=== PATIENT | female | born 1955 | race African-American/Black ===

== ENCOUNTER 2018-01-09 22:38 | Inpatient (IN) | payer MEDICARE, OTHER ==
[~2018-01-09] VITALS: Ht 172.7 cm; Wt 154.2 kg
--- NOTE | 2018-01-09 22:52 | NUR ---
PATIENT BIB AMBULANCE FROM [facility] FOR PSYCH ADMISSION. PATIENT IS ON HOLD AND MEDICALLY CLEARED BY DR. SCHMITZ. CXR WAS TAKEN HERE IN ER AND PATIENT WAS TRANSFERED TO [facility] VIA GURNEY.
[2018-01-09] MEDS ORDERED: ALBU6.7H IH (22:54)
[2018-01-09] MEDS ORDERED: IPRA4AER IH (22:54)
[2018-01-09] MEDS ORDERED: SERT100T PO (22:54)
[2018-01-09] MEDS ORDERED: ATOR40TA PO (22:54)
[2018-01-09] MEDS ORDERED: ASPI81TA31 PO (22:54)
[2018-01-09] MEDS ORDERED: PANT40TA2 PO (22:54)
[2018-01-09] MEDS ORDERED: LOSA50TA21 PO (22:54)
[2018-01-09] MEDS ORDERED: AMLO10TA4 PO (22:54)
[2018-01-09] MEDS ORDERED: GABA-534 PO (22:54)
[2018-01-09] MEDS ORDERED: MONT10TA22 PO (22:54)
[2018-01-09] MEDS ORDERED: IBUP-1953 PO (22:54)
[2018-01-09] MEDS ORDERED: NITROFURANTOIN/NITROFURAN MAC 100 MG CAPSULE PO ONE (23:00)
[2018-01-09] MEDS ORDERED: NITROFURANTOIN/NITROFURAN MAC 100 MG CAPSULE ONE (23:02)
--- NOTE | 2018-01-09 23:06 | NUR ---
Pt. admitted to GPS, under care of Dr. Hoover Belongs List completed
[2018-01-10] MEDS ORDERED: MAG HYDROX/AL HYDROX/SIMETH 30 ML LIQUID UDC PO PRN
--- NOTE | 2018-01-10 07:05 | NUR ---
GPS/NSG Admitting Note: Patient is a 62 yr old homeless female admitted on a 5150 for Danger to self and Grave disability after she was transported to [facility] where she verbalized suicidal ideation by cutting wrists. On admission patient was treated for Urine tract infection, macrobid X1. Patient is morbid obese with a history of cocaine use, hx of Depression, Anxiety, bipolar D/O Neuropathy. Patient refused to sign admitting paperwork. Unable to contract for safety and verbalized to be actively suuicidal with a plan to cut wrists. Patients skin appeared to be intact however patient is unable to ambulate. Fall precautions in place. Will continue to Monitor for safety last observed lying in bed with eyes closed.
[2018-01-10 07:30] VITALS: BP 146/65
[2018-01-10] MEDS ORDERED: Z GUARD REMEDY PASTE 57 GM TUBE TOP PRN (10:45)
[2018-01-10] MEDS: SERTRALINE HCL 100 MG TABLET PO SCH (11:32)
[2018-01-10] MEDS ORDERED: CEPH-570 PO (12:46)
[2018-01-10] MEDS ORDERED: TRAM50TA2 PO (12:49)
[2018-01-10] MEDS ORDERED: HYDR-3326 PO (12:50)
[2018-01-10] MEDS: MAGNESIUM HYDROXIDE 30 ML LIQUID UDC PO PRN (13:00)
[2018-01-10 16:00] VITALS: BP 158/67
[2018-01-10] MEDS ORDERED: ALBUTEROL SULFATE 8 GM HFA.AER.AD IH PRN (17:00)
[2018-01-10] MEDS ORDERED: IPRATROPIUM BROMIDE 0.5 MG/2.5 ML NEBU NEB PRN (17:00)
[2018-01-10] MEDS ORDERED: ALBUTEROL SULFATE 2.5 MG/ 0.5 ML NEBU NEB PRN (17:00)
[2018-01-10] MEDS: TRAMADOL HCL 50 MG TABLET PO SCH (17:19)
[2018-01-10] MEDS: CEPHALEXIN MONOHYDRATE 500 MG CAPSULE PO SCH ×2 (17:19→20:12)
[2018-01-10] MEDS ORDERED: BISACODYL 10 MG SUPP.RECT RC PRN (18:15)
--- NOTE | 2018-01-10 18:23 | NUR ---
patient has been resting comfortably in bed for most of the day. no signs of distress. vital signs stable. medications reconciled by [employer]. Seen by psychiatrist. Patient has been sleeping for most of shift and has not verbalized thoughts of suicidal since beginning of shift. pictures taken of left and right posterior thighs. Complaining of constipation, prune juice and milk of mag administered which were not effective. Notified [employer] and received an order for dulcolax suppository. will continue to monitor. safety measures implemented. 1:1 sitter at bedside for safety.
[2018-01-10] MEDS: ATORVASTATIN 40 MG TABLET PO SCH (20:12)
[2018-01-10 20:56] VITALS: BP 132/48
[2018-01-10] MEDS: ACETAMINOPHEN 325 MG TABLET PO PRN (23:48)
[2018-01-11] MEDS: PANTOPRAZOLE SODIUM 40 MG TABLET.DR PO SCH (06:03)
--- NOTE | 2018-01-11 06:52 | NUR ---
GPS: Remain calm and comfortably. Slept 8 hrs through the night. tylenol 650 mg po given x1 for pain and effective.patient has been resting comfortably in bed for most of the night. no signs of distress. vital signs stable. will continue to monitor. safety measures implemented. 1:1 sitter at bedside for safety.
[2018-01-11 08:00] VITALS: BP 148/63
[2018-01-11] MEDS: MONTELUKAST SODIUM 10 MG TABLET PO SCH (08:34)
[2018-01-11] MEDS: CEPHALEXIN MONOHYDRATE 500 MG CAPSULE PO SCH ×4 (08:34→21:33)
[2018-01-11] MEDS: ASPIRIN 81 MG TAB.CHEW PO SCH (08:34)
[2018-01-11] MEDS: SERTRALINE HCL 100 MG TABLET PO SCH (08:34)
[2018-01-11] MEDS: TRAMADOL HCL 50 MG TABLET PO SCH (08:35)
[2018-01-11] MEDS: AMLODIPINE 10 MG TABLET PO SCH (09:44)
[2018-01-11] MEDS: LOSARTAN POTASSIUM 50 MG TABLET PO SCH (09:44)
[2018-01-11] MEDS ORDERED: OXYB5TAB11 PO (09:57)
[2018-01-11] MEDS ORDERED: Z GUARD REMEDY PASTE 57 GM TUBE TOP PRN (12:00)
[2018-01-11] MEDS: OXYBUTYNIN CHLORIDE 5 MG TABLET PO SCH (12:11)
[2018-01-11] MEDS: HYDROCODONE/APAP 5-325MG TABLET PO SCH ×3 (12:17→23:43)
--- NOTE | 2018-01-11 12:54 | NUR ---
Initial Discharge Note: Prior to hospitalization, patient was recently discharged from [facility] to live with her cousin. Patient was living with her cousin who was also patient's caregiver. However, patient is unable to return back with her cousin as her cousin can no longer care for patient due to patient being totally dependent for all ADLs and patient size. Patient will need SNF placement. community service worker will collaborate with patient and MD on a safe and proper discharge.
--- NOTE | 2018-01-11 12:58 | NUR ---
patient high risk for DVT, nonambulatory, obesity. patient with Differential Diagnosis from transferring hospital Unstable Angina, Angina, Anxiety, Pulmonary Embolism. patient complains of left leg pain more versus right leg pain. no imaging noted on transferring records for Doppler. Dr Ezequiel Alcocer notified, orders received for Doppler of Bilateral Lower Extremities, Lovenox 40mg daily for prophylaxis. reviewed labs from transferring [facility], BUN 25, Creatinine 0.90 and eGFR 70. per MD madrigal to administer Lovenox. orders read back. Discussed anticoagulation therapy to patient, risk and concerns of DVT, verbalized understanding. medication handout provided.
--- NOTE | 2018-01-11 15:34 | NUR ---
Firearms Report: SW completed and submitted [employer] Firearms Report for 5150 DTS certification.
[2018-01-11] MEDS: MAGNESIUM HYDROXIDE 30 ML LIQUID UDC PO PRN (15:45)
[2018-01-11 16:22] VITALS: BP 153/58
[2018-01-11 20:00] VITALS: BP 145/57
[2018-01-11] MEDS: Z GUARD REMEDY PASTE 57 GM TUBE TOP SCH (21:33)
[2018-01-11] MEDS: ATORVASTATIN 40 MG TABLET PO SCH (21:33)
[2018-01-11] MEDS: ENOXAPARIN SODIUM 40 MG/0.4 ML DISP.SYRIN SQ SCH (21:34)
[2018-01-12] MEDS: TEMAZEPAM 7.5 MG CAPSULE PO PRN ×2 (00:41→21:05)
[2018-01-12] MEDS: HYDROCODONE/APAP 5-325MG TABLET PO SCH ×3 (06:10→17:01)
[2018-01-12 07:30] VITALS: BP 150/61
[2018-01-12] MEDS: SERTRALINE HCL 100 MG TABLET PO SCH (08:56)
[2018-01-12] MEDS: CEPHALEXIN MONOHYDRATE 500 MG CAPSULE PO SCH ×4 (08:56→21:05)
[2018-01-12] MEDS: MONTELUKAST SODIUM 10 MG TABLET PO SCH (08:56)
[2018-01-12] MEDS: ASPIRIN 81 MG TAB.CHEW PO SCH (08:56)
[2018-01-12] MEDS: OXYBUTYNIN CHLORIDE 5 MG TABLET PO SCH (08:57)
[2018-01-12] MEDS: AMLODIPINE 10 MG TABLET PO SCH (08:57)
[2018-01-12] MEDS: PANTOPRAZOLE SODIUM 40 MG TABLET.DR PO SCH (08:57)
[2018-01-12] MEDS: LOSARTAN POTASSIUM 50 MG TABLET PO SCH (08:58)
[2018-01-12] MEDS ORDERED: OXYBUTYNIN CHLORIDE 5 MG TABLET PO SCH (09:00)
[2018-01-12] MEDS: Z GUARD REMEDY PASTE 57 GM TUBE TOP SCH ×2 (09:52→21:06)
--- NOTE | 2018-01-12 10:16 | NUR ---
Discharge Planning: supervisor cemetery workers faxed patient referral packet to [facility] [ ; ]. supervisor cemetery workers awaiting response. Addendum: 01/13/18 at 1143 by NIRAV ROACH Additional Information: Patient was denied by [facility] per Cody elizondo.
[2018-01-12] MEDS: CLONAZEPAM 0.5 MG TABLET PO PRN (15:04)
--- NOTE | 2018-01-12 15:09 | NUR ---
GPS: NURSING: PATIENT VERBALIZE FEELING ANXIOUS AND REQUEST TO HAVE AN ANXIETY MEDICATION. PROVIDE MEDICATION AND PATIENT COMPLIANT OF TAKING THE MEDICATION.
[2018-01-12 16:10] VITALS: BP 130/50
[2018-01-12 20:14] VITALS: BP 129/41
[2018-01-12] MEDS: ENOXAPARIN SODIUM 40 MG/0.4 ML DISP.SYRIN SQ SCH ×2 (21:00→21:05)
[2018-01-12] MEDS: ATORVASTATIN 40 MG TABLET PO SCH (21:05)
[2018-01-13] MEDS: HYDROCODONE/APAP 5-325MG TABLET PO SCH ×4 (01:46→11:07)
[2018-01-13 07:39] LABS: BASOPHILS % (AUTO) 0.4 % (0.0-2.0); EOSINOPHILS # (AUTO) 0.2 K/uL (0.0-0.7); EOSINOPHILS % (AUTO) 1.8 % (0.0-7.0); HEMATOCRIT 31.8 % (31.2-41.9); HEMOGLOBIN 10.3 g/dL (10.9-14.3); LYMPHOCYTES # (AUTO) 2.7 K/uL (20.0-40.0); LYMPHOCYTES % (AUTO) 28.3 % (20.5-51.5); MEAN CORPUSCULAR HEMOGLOBIN 25.5 uug (24.7-32.8); MEAN CORPUSCULAR HGB CONC 32 g/dL (32.3-35.6); MONOCYTES # (AUTO) 0.9 K/uL (2.0-10.0); NEUTROPHILS # (AUTO) 5.8 K/uL (1.8-8.9); NEUTROPHILS % (AUTO) 60.5 % (38.5-71.5); PLATELET COUNT (AUTO) 314 K/uL (179-408); RED BLOOD CELL COUNT(AUTO) 4.03 MIL/uL (3.63-4.92); WHITE BLOOD COUNT (AUTO) 9.6 K/uL (3.8-11.8)
[2018-01-13 07:57] LABS: BILIRUBIN,TOTAL 0.3 mg/dL (0.2-1.0); CREATININE 0.8 mg/dL (0.6-1.3); PHOSPHOROUS 3.8 mg/dL (2.5-4.9); TOTAL PROTEIN, SERUM 7.1 g/dL (6.4-8.2)
[2018-01-13 08:01] LABS: THYROID STIMULATING HORMONE 6.739 mIU/mL (0.358-3.740)
[2018-01-13] MEDS: PANTOPRAZOLE SODIUM 40 MG TABLET.DR PO SCH (08:45)
[2018-01-13] MEDS: OXYBUTYNIN CHLORIDE 5 MG TABLET PO SCH (08:45)
[2018-01-13] MEDS: CEPHALEXIN MONOHYDRATE 500 MG CAPSULE PO SCH ×4 (08:45→21:15)
[2018-01-13] MEDS: SERTRALINE HCL 100 MG TABLET PO SCH (08:46)
[2018-01-13] MEDS: AMLODIPINE 10 MG TABLET PO SCH (08:46)
[2018-01-13] MEDS: LOSARTAN POTASSIUM 50 MG TABLET PO SCH (08:46)
[2018-01-13] MEDS: ASPIRIN 81 MG TAB.CHEW PO SCH (08:46)
[2018-01-13] MEDS: Z GUARD REMEDY PASTE 57 GM TUBE TOP SCH ×2 (08:46→21:16)
[2018-01-13] MEDS: MONTELUKAST SODIUM 10 MG TABLET PO SCH (08:46)
[2018-01-13 08:47] VITALS: BP 155/55
--- NOTE | 2018-01-13 14:06 | NUR ---
Patient continue pain management norco PRN for pain-given. Patient sit at the edge of the bed after therapy. no signs of anxiety and agitation.
[2018-01-13 15:32] VITALS: BP 143/54
[2018-01-13] MEDS: CLONAZEPAM 0.5 MG TABLET PO PRN (15:50)
[2018-01-13] MEDS: PREGABALIN 25 MG CAPSULE PO SCH (17:35)
--- NOTE | 2018-01-13 19:30 | NUR ---
RECEIVED PATIENT IN BED, ALERT ORIENTED, NO COMPLAIN OF PAIN NOTED AT THIS TIME. NO BEHAVIORAL PROBLEM NOTED AT THIS TIME. PATIENT VERBALIZED THAT SHE BEEN URINATING MORE AND WANTED TO HAVE A DOSE OF DITROPAN FOR RELIEF, EXPLAINED TO PATIENT MD WILL BE CALLED FOR AN ORDER. CONT ABX WITH NO ADVERSE REACTION NOTED. CONT TO MONITOR.
[2018-01-13 20:51] VITALS: BP 106/53
[2018-01-13] MEDS: ATORVASTATIN 40 MG TABLET PO SCH (21:15)
[2018-01-13] MEDS: ENOXAPARIN SODIUM 40 MG/0.4 ML DISP.SYRIN SQ SCH (21:17)
[2018-01-13] MEDS ORDERED: OXYBUTYNIN XL 5 MG TABSR PO SCH (22:30)
[2018-01-13] MEDS: TEMAZEPAM 7.5 MG CAPSULE PO PRN (22:30)
[2018-01-13] MEDS ORDERED: OXYBUTYNIN XL 5 MG TABSR PO ONE (22:30)
--- NOTE | 2018-01-13 22:30 | NUR ---
PATIENT COMPLAIN OF INSOMNIA AND MILD GEN BODY PAIN, GIVEN SLEEPING MEDS PLUS PAIN MEDICATIONS ORDERED. DR. HURTADO HAS NEW ORDER FOR DITROPAN ORDER NOTED AND CARRIED OUT.
[2018-01-13] MEDS: ACETAMINOPHEN 325 MG TABLET PO PRN (22:34)
[2018-01-14] MEDS ORDERED: OXYBUTYNIN XL 5 MG TABSR PO ONE (01:44)
[2018-01-14] MEDS: CLONAZEPAM 0.5 MG TABLET PO PRN ×2 (05:01→12:07)
[2018-01-14] MEDS: ACETAMINOPHEN 325 MG TABLET PO PRN ×2 (05:01→21:10)
[2018-01-14] MEDS: LEVOTHYROXINE SODIUM 25 MCG TABLET PO SCH (06:03)
--- NOTE | 2018-01-14 06:13 | NUR ---
SLEPT MOST OF THE NIGHT, PATIENT HAS EPISODES OF ANXIETY MB CRYING AND MULTIPLE DEMANDS, GIVEN KLONOPIN AND TYLENOL FOR ANXIETY AND PAIN, WITH HELP AFTER ONE HOUR. CONT TO MONITOR.
[2018-01-14 07:30] VITALS: BP 131/47
[2018-01-14] MEDS: MONTELUKAST SODIUM 10 MG TABLET PO SCH (08:12)
[2018-01-14] MEDS: PANTOPRAZOLE SODIUM 40 MG TABLET.DR PO SCH (08:13)
[2018-01-14] MEDS: PREGABALIN 25 MG CAPSULE PO SCH ×3 (08:13→17:09)
[2018-01-14] MEDS: AMLODIPINE 10 MG TABLET PO SCH (08:13)
[2018-01-14] MEDS: SERTRALINE HCL 100 MG TABLET PO SCH (08:13)
[2018-01-14] MEDS: ASPIRIN 81 MG TAB.CHEW PO SCH (08:13)
[2018-01-14] MEDS: CEPHALEXIN MONOHYDRATE 500 MG CAPSULE PO SCH ×4 (08:13→20:20)
[2018-01-14] MEDS: OXYBUTYNIN XL 5 MG TABSR PO SCH (08:14)
[2018-01-14] MEDS: Z GUARD REMEDY PASTE 57 GM TUBE TOP SCH ×2 (08:15→21:13)
[2018-01-14] MEDS: LOSARTAN POTASSIUM 50 MG TABLET PO SCH (08:15)
[2018-01-14] MEDS ORDERED: OXYBUTYNIN CHLORIDE 5 MG TABLET PO SCH (09:00)
--- NOTE | 2018-01-14 11:53 | NUR ---
Discharge Planning: parks and recreation worker has received confirmation from [facility] wellness coordinator, at [facility] [[address] [place] [address] ] that patient has been accepted but waiting for a bed. SNF is also aware that patient will need a bariatric bed. parks and recreation worker has also sent referrals to [facility] [[address] [place] [address]; ] and [facility] [[address] [place] [address]; , however admissions is looking into patient's Medicare SNF days. Patient is aware of all information and is eager to discharge. parks and recreation worker will continue to work on a safe and proper discharge.
[2018-01-14 16:00] VITALS: BP 147/57
--- NOTE | 2018-01-14 19:45 | NUR ---
RECEIVED PATIENT IN HER ROOM IN BED, SHE IS NOTED A/O X 3. SHE IS ABLE TO AMBULATE WITH ASSITNACE AND ABLE TO VERBALIZED FEELINGS. UPON INTERVIEW, SHE STATED THAT SHE WAS FEELING SAD BECAUSE HIS BOYFRIEND OF 10 YEARS BROKE UP WITH HER. SHE DENIES SI. SHE STATED THAT SHE IS "LEARNING TO ACCEPT THINGS THAT SHE CAN'T CHANGE". PATIENT WAS NOTED SMILING, [facility] EYE CONTACT. SAFETY WAS EMPHASIS. WILL CONTINUE TO MONITOR.
[2018-01-14 19:48] VITALS: BP 125/58
[2018-01-14] MEDS: ATORVASTATIN 40 MG TABLET PO SCH (20:20)
[2018-01-14] MEDS: ENOXAPARIN SODIUM 40 MG/0.4 ML DISP.SYRIN SQ SCH (20:23)
[2018-01-15] MEDS: LEVOTHYROXINE SODIUM 25 MCG TABLET PO SCH (06:24)
[2018-01-15] MEDS: ACETAMINOPHEN 325 MG TABLET PO PRN (06:36)
[2018-01-15 07:30] VITALS: BP 134/63
[2018-01-15] MEDS: PREGABALIN 25 MG CAPSULE PO SCH ×2 (09:24→12:50)
[2018-01-15] MEDS: ASPIRIN 81 MG TAB.CHEW PO SCH (09:24)
[2018-01-15] MEDS: MONTELUKAST SODIUM 10 MG TABLET PO SCH (09:24)
[2018-01-15] MEDS: PANTOPRAZOLE SODIUM 40 MG TABLET.DR PO SCH (09:25)
[2018-01-15] MEDS: LOSARTAN POTASSIUM 50 MG TABLET PO SCH (09:25)
[2018-01-15 09:26] VITALS: BP 134/63
[2018-01-15] MEDS: OXYBUTYNIN XL 5 MG TABSR PO SCH (09:26)
[2018-01-15] MEDS: AMLODIPINE 10 MG TABLET PO SCH (09:26)
[2018-01-15] MEDS: SERTRALINE HCL 100 MG TABLET PO SCH (09:26)
[2018-01-15] MEDS: Z GUARD REMEDY PASTE 57 GM TUBE TOP SCH (09:26)
[2018-01-15] MEDS: CEPHALEXIN MONOHYDRATE 500 MG CAPSULE PO SCH ×2 (09:26→12:50)
--- NOTE | 2018-01-15 10:10 | NUR ---
Discharge Note: Patient will be discharged to [facility] [[address] [place] [address]; ] and transportation will be provided by ambulance at 1:00pm. Please arrange ambulance transportation for this patient. Confirmation of acceptance at facility was provided by Aliza, documentation coordinator, at facility. Patient person to notify, Savi Brie [[phone]], was called and notified of discharge. Patient is alert and oriented x4 and denies any SI/HI. Patient was briefed on discharge and aware and agreeable to plan. Patient will follow-up with Dr. Gomez (configuration management advisor) and Dr. Manzano (psychiatrist). Patient was given outpatient mental health resources including [facility] [ ], Yelena Grider [ ], and National Suicide Prevention Lifeline [ ].
--- NOTE | 2018-01-15 12:41 | NUR ---
Gps/Patient Portal Representative- Called [facility](SNF) report was given to Neyda Chambers. Informed picker box operator time via [employer] at 1330. All belongings was packed and returned back to patient. Patient's family was informed of the dc.plan today. Camelia(daughter in-law called, spoked to patient, also informed discharge plan this pm to [facility] in [place].
--- NOTE | 2018-01-15 14:22 | NUR ---
Gps/Housekeeping Supervisor- Discharged to [facility] via ambulance with all belongings given back to patient, 2 cell phones with 1 media developer, $ 50.00( 2 -20 $ bills and 1 -$10.00 bill) patient put it on her hosp.gown pocket. Patient in good spirit with no new complaints noted.
== END 2018-01-15 14:15 | DRG 885 ==
LOC: ER 22:40 → GPS 23:04
PROVIDERS: ADMIT Psychiatry & Neurology Psychiatry; ATTEND Registered Nurse
DX: F31.4 Bipolar disorder, current episode depressed, severe, without psychotic features (principal); E43 Unspecified severe protein-calorie malnutrition; Z68.43 Body mass index [BMI] 50.0-59.9, adult; N39.0 Urinary tract infection, site not specified; D68.59 Other primary thrombophilia; E66.01 Morbid (severe) obesity due to excess calories; G89.29 Other chronic pain; K21.9 Gastro-esophageal reflux disease without esophagitis; E78.5 Hyperlipidemia, unspecified; Z91.14 Patient's other noncompliance with medication regimen; M19.90 Unspecified osteoarthritis, unspecified site; Z74.09 Other reduced mobility; D50.9 Iron deficiency anemia, unspecified; I10 Essential (primary) hypertension; J45.909 Unspecified asthma, uncomplicated; G47.33 Obstructive sleep apnea (adult) (pediatric); F41.9 Anxiety disorder, unspecified; Z82.49 Family history of ischemic heart disease and other diseases of the circulatory system; Z88.0 Allergy status to penicillin; Z88.2 Allergy status to sulfonamides; Z79.82 Long term (current) use of aspirin; Z83.3 Family history of diabetes mellitus
CPT/HCPCS: 36415; 71045; 83735; 84100; 84443; 85025; 97110; 97530; A4663; J1650